=== PATIENT | female | born 1960 | race Two or more races ===

== ENCOUNTER 2016-11-01 19:58 | Emergency (ER) | payer MEDICAID ==
[~2016-11-01] VITALS: Ht 162.6 cm; Wt 95.3 kg
[2016-11-01 20:29] VITALS: BP 172/92
--- NOTE | 2016-11-01 20:46 | NUR ---
PT STABLE FOR D/C. WAS TOLD TO WAIT BUT LEFT BEFORE ACI WAS GIVEN.
== END 2016-11-01 20:48 | disposition home or self-care (01) ==
LOC: ER 20:01
DX: S43.409A Unspecified sprain of unspecified shoulder joint, initial encounter (principal); V49.49XA Driver injured in collision with other motor vehicles in traffic accident, initial encounter; Y93.89 Activity, other specified; Y92.89 Other specified places as the place of occurrence of the external cause; Y99.9 Unspecified external cause status
CPT/HCPCS: 99281; A4606; Z7610; Z7502

== ENCOUNTER 2017-11-25 00:08 | Emergency (ER) | payer MEDICAID ==
[~2017-11-25] VITALS: Ht 165.1 cm; Wt 95.3 kg
--- NOTE | 2017-11-25 00:25 | NUR ---
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 pt aaox4 no acute distress noted, resp even and unlabored. 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 pt also report similar episode last week. place pt on cardiac monitoring, continuous pox. er md at bedside to eval pt with orders received. will carry out orders.
--- NOTE | 2017-11-25 00:30 | NUR ---
started sl 18g to [facility], blood drawn and sent to lab.
--- NOTE | 2017-11-25 00:49 | NUR ---
pt transported to radiology for ct head.
--- NOTE | 2017-11-25 01:03 | NUR ---
pt back from radiology. pending ct head result.
[2017-11-25 01:08] LABS: BASOPHILS % (AUTO) 0.4 % (0.0-2.0); EOSINOPHILS % (AUTO) 3.4 % (0.0-6.0); HEMATOCRIT 38 % (33-45); LYMPHOCYTES # (AUTO) 1.9 /CMM (0.8-4.8); LYMPHOCYTES % (AUTO) 31.8 % (20.0-44.0); MEAN CORPUSCULAR HGB CONC 35 g/dl (31.0-36.0); MEAN CORPUSCULAR VOLUME 84 fL (82-100); MONOCYTES # (AUTO) 0.4 /CMM (0.1-1.30); MONOCYTES % (AUTO) 6.3 % (2.0-12.0); NEUTROPHILS # (AUTO) 3.4 /CMM (1.8-8.9); NEUTROPHILS % (AUTO) 58.1 % (43.0-81.0); PLATELET COUNT (AUTO) 167 /CMM (150-450); RDW COEFFICIENT OF VARIATION 13.3 (11.5-15.0); RED BLOOD CELL COUNT(AUTO) 4.45 MIL/uL (4.0-5.2); WHITE BLOOD COUNT (AUTO) 5.9 K/uL (4.3-11.0)
[2017-11-25 01:23] LABS: CALCIUM, SERUM 8.5 mg/dL (8.5-10.1); CARBON DIOXIDE 27 mmol/L (21-32); CHLORIDE 106 mmol/L (98-107); CREATININE 0.8 mg/dL (0.6-1.3); GLUCOSE 159 mg/dL (74-106); INR 0.9 (0.87-1.13); POTASSIUM 3.1 mmol/L (3.5-5.1); SODIUM SERUM 143 mmol/L (136-145); UREA NITROGEN, BLOOD 20 mg/dL (7-18)
[2017-11-25 01:28] LABS: TROPONIN I < 0.017 ng/mL (0.00-0.056)
[2017-11-25 01:29] LABS: ALANINE AMINOTRANSFERASE 35 U/L (12-78); ALBUMIN 3.6 g/dL (3.4-5.0); ALKALINE PHOSPHATASE 94 U/L (46-116); ASPARTATE AMINOTRANSFERASE 17 U/L (15-37); BILIRUBIN,TOTAL 0.3 mg/dL (0.2-1.0); TOTAL PROTEIN, SERUM 7.2 g/dL (6.4-8.2)
[2017-11-25 01:30] LABS: CHOLESTEROL 155 mg/dL (<200); HDL CHOLESTEROL 34 mg/dL (40-60); LDL 103 mg/dL (0-99); TRIGLYCERIDES 139 mg/dL (30-150)
[2017-11-25] MEDS ORDERED: POTASSIUM CHLORIDE 20 MEQ TAB.PRT.SR PO ONE ×3 (01:51→02:00)
--- NOTE | 2017-11-25 02:00 | NUR ---
IV removed. Catheter intact and site benign. Pressure and 4x4 applied to site. No bleeding noted. Patient discharged to home in stable condition. Written and verbal after care instructions given. Patient verbalizes understanding of instruction. ambulatory with a steady gait noted. pt aaox4 no acute distress noted. pt remains pain free at this time. pt daughter at bedside to take pt home.
[2017-11-25 02:02] VITALS: BP 147/97
== END 2017-11-25 02:03 | disposition home or self-care (01) ==
LOC: ER 00:12
DX: E87.6 Hypokalemia (principal); R53.1 Weakness
CPT/HCPCS: 36415; 70450-TC; 71045-TC; 80048-TC; 80061-TC; 80076-TC; 84484-TC; 85025-TC; 85730-TC; A4606; Z7610

== ENCOUNTER 2025-04-30 17:43 | Emergency (ER) | payer MEDICAID, OTHER ==
[~2025-04-30] VITALS: Ht 162.6 cm; Wt 87.5 kg
[2025-04-30 18:13] VITALS: TEMP 98.2
[2025-04-30] MEDS ORDERED: IBUPROFEN 600 MG TABLET ONE (19:30)
[2025-04-30] MEDS ORDERED: ACETAMINOPHEN ES 500 MG TABLET ONE (19:30)
[2025-04-30] MEDS ORDERED: LIDOCAINE 5% (PATCH) 1 EA PATCH TP ONE (19:30)
[2025-04-30] MEDS: LIDOCAINE 5% (PATCH) 1 EA PATCH TP SCH (19:34)
[2025-04-30] MEDS: ACETAMINOPHEN ES 500 MG TABLET PO ONE (19:34)
[2025-04-30] MEDS: IBUPROFEN 600 MG TABLET PO ONE (19:34)
[2025-04-30] MEDS ORDERED: LIDO30AD10 TP (22:00)
[2025-04-30 22:08] VITALS: BP 138/89; O2SAT 98
== END 2025-04-30 22:09 | disposition home or self-care (01) ==
LOC: ER 17:52
DX: R07.89 Other chest pain (principal); M25.511 Pain in right shoulder; Z86.61 Personal history of infections of the central nervous system; V89.2XXA Person injured in unspecified motor-vehicle accident, traffic, initial encounter; Y93.89 Activity, other specified; Y92.410 Unspecified street and highway as the place of occurrence of the external cause; Y99.9 Unspecified external cause status
CPT/HCPCS: 71045-TC; 73030-TC

== ENCOUNTER 2025-05-24 12:50 | Emergency (ER) | payer OTHER ==
[~2025-05-24] VITALS: Ht 162.6 cm; Wt 88.5 kg
[~2025-05-24 12:50] MED LIST: LIDO30AD10 TP
[2025-05-24] MEDS ORDERED: IBUPROFEN 600 MG TABLET ONE (14:44)
[2025-05-24] MEDS: IBUPROFEN 600 MG TABLET PO ONE (14:46)
[2025-05-24] MEDS ORDERED: IBUP-1490 PO (14:47)
[2025-05-24 15:01] VITALS: BP 125/73; TEMP 98.5; O2SAT 96
== END 2025-05-24 15:03 | disposition home or self-care (01) ==
LOC: ER 13:01
DX: M19.011 Primary osteoarthritis, right shoulder (principal); M25.511 Pain in right shoulder; I10 Essential (primary) hypertension; Z86.61 Personal history of infections of the central nervous system
CPT/HCPCS: 73030-TC; 73060-TC